=== PATIENT | male | born 1985 | race Caucasian/White ===

== ENCOUNTER 2021-02-04 12:06 | Outpatient (REF) | payer OTHER, SELFPAY | END 2021-02-04 12:07 | disposition home or self-care (01) | LOC: HO.LAB 12:06 | PROVIDERS: Visit Provider Internal Medicine | DX: Z20.822 Contact with and (suspected) exposure to COVID-19 (principal) | CPT/HCPCS: C9803; U0003; U0005 ==

== ENCOUNTER 2022-04-28 14:32 | Outpatient (REF) | payer MEDICAID, SELFPAY | END 2022-04-28 14:33 | disposition home or self-care (01) | LOC: HO.SH 14:32 | PROVIDERS: Visit Provider Registered Nurse | DX: Z01.118 Encounter for examination of ears and hearing with other abnormal findings (principal); H90.6 Mixed conductive and sensorineural hearing loss, bilateral; H69.93 Unspecified Eustachian tube disorder, bilateral | CPT/HCPCS: 92557; 92567; 92588 ==

== ENCOUNTER 2023-03-08 01:50 | Emergency (ER) | payer MEDICAID, SELFPAY ==
--- NOTE | ~2023-03-08 | CT_ITS ---
EXAMINATION: CT ABDOMEN AND PELVIS WITHOUT CONTRAST CLINICAL INFORMATION: Pain. COMPARISON: None available. TECHNIQUE: Multidetector volumetric imaging was performed from the superior aspect of the liver through the pubic symphysis. Sagittal and coronal reformatted images were obtained on the technologist's workstation. This CT examination was performed using dose optimization techniques as appropriate, variously including the following: *Automated exposure control *Adjustment of mA and/or kV according to patient size (this includes techniques or standardized protocols for targeted exams where dose is matched to indication/reason for exam; i.e. extremities or head) *Use of iterative reconstruction technique DLP: 1229 mGy-cm FINDINGS: Motion limits evaluation. LUNG BASES: The visualized lung bases are unremarkable. LIVER, GALLBLADDER, AND BILIARY TREE: The liver is slightly irregular in contour. No focal liver lesions are seen. There is no intrahepatic biliary duct dilatation. The gallbladder is unremarkable with no evidence of radiopaque gallstones, gallbladder wall thickening, or obvious pericholecystic inflammatory changes. PANCREAS: Unremarkable. SPLEEN: Unremarkable. ADRENAL GLANDS: Unremarkable. KIDNEYS AND URETERS: The kidneys are normal in size, shape, and attenuation. No hydronephrosis, hydroureter, or calculi seen. No perinephric stranding. BLADDER: Unremarkable. GASTROINTESTINAL TRACT: There are prominent fluid-filled an apparently mildly thickened mid to distal small bowel loops with apparent mild surrounding infiltration. A small air-containing structure along the cecum is likely a normal appendix. There is small free fluid within the right colon. ABDOMINAL WALL: No significant hernia is appreciated. LYMPH NODES: Normal. VASCULAR: Unremarkable. PELVIC VISCERA: The intrapelvic structures are unremarkable. There is a small amount of free fluid within the pelvis as well as along the liver. OSSEOUS STRUCTURES: Unremarkable. CT/CT abdomen pelvis wo IV con IMPRESSION: Motion limits evaluation. Prominent fluid-filled and thickened mid to distal small bowel loops with apparent mild surrounding infiltration most consistent with an enteritis. The liver is irregular in contour possibly hepatocellular disease/early cirrhosis. Correlation needed. There is small amount of free fluid within the pelvis and along the liver. Fleischner guidelines were followed.
[2023-03-08 02:21] VITALS: BP 160/103; PULSE 74; RESP 16; TEMP 36.6; O2SAT 97
[2023-03-08 02:23] VITALS: BP 160/103; PULSE 74; RESP 6; TEMP 36.6; O2SAT 98; BMI 36.2
[2023-03-08 02:47] LABS: MANUAL DIFF FLAG NO
[2023-03-08 02:48] LABS: Basophils Percent Auto 0.3 % (0-2); Eosinophils Absolute Auto 1.7 X10*3/uL (0.0-0.4); Eosinophils Percent Auto 14.4 % (0-4); Hematocrit 41.8 % (42.0-52.0); Hemoglobin 14.4 g/dl (14.0-18.0); Imm Gran Abs Auto 0.02 X10*3/uL (0.00-0.03); Imm Gran Pct Auto 0.2 % (0.0-0.4); Lymphocytes Absolute Auto 2.4 X10*3/uL (1.2-4.9); Lymphocytes Percent Auto 21.3 % (20-40); Mean Corpuscular HGB Conc 34.4 g/dl (31.0-36.0); Mean Corpuscular Hemoglobin 30.4 pg (27.0-33.0); Mean Corpuscular Volume 88.2 fL (80.0-98.0); Mean Platelet Volume 10.5 fL (9.4-12.4); Monocytes Absolute Auto 0.8 X10*3/uL (0.1-1.2); Monocytes Percent Auto 6.6 % (2-11); Neutrophils Absolute Auto 6.5 x10*3/uL (2.0-8.3); Neutrophils Percent Auto 57.2 % (45-73); Platelet Count 193 X10*3/uL (160-400); Red Blood Count 4.74 X10*6/uL (4.60-5.80); Red Cell Distribution Width 12.9 % (11.0-16.0); White Blood Count 11.4 X10*3/uL (4.8-10.8)
--- NOTE | 2023-03-08 02:52 | ED_ITS ---
HPI - Abdominal Pain General Chief Complaint: Abdominal Pain Stated Complaint: Abd pain/Headache Time Seen by Provider: 03/08/23 02:25 Source: patient and communication instructor Mode of arrival: ambulatory Limitations: no limitations History of Present Illness HPI narrative: 37-year-old male Sinhala-speaking old presented with mid abdominal pain for 3 days after eating Qatari food ( [place]) followed by wide tries and leg pain with pork, the abdominal pain is associated with nausea, vomiting, nonbloody watery diarrhea. Related Data Previous Rx's Medication Instructions Recorded omeprazole 40 mg capsule,delayed 40 mg PO DAILY #14 caps 03/08/23 release Allergies Allergy/AdvReac Type Severity Reaction Status Date / Time No Known Allergies Allergy Unverified 01/11/20 18:51 [No Known Allergies*] Review of Systems Review of Systems All other systems are reviewed and are negative Constitutional: Reports as per HPI and Reports no additional constitutional complaints Eyes: Reports as per HPI and Reports no additional eye complaints Reports system reviewed and no additional complaints, except as documented Cardiovascular: Reports as per HPI and Reports no additional cardiovascular complaints Respiratory: Reports as per HPI and Reports no additional respiratory complaints Gastrointestinal: Reports as per HPI and Reports no additional gastrointestinal complaints Genitourinary: Reports no additional female genitourinary complaints Musculoskeletal: Reports no additional musculoskeletal complaints Skin/Breast: Reports system reviewed and no additional complaints, except as docu Psychiatric: Reports no additional psychiatric complaints Endocrine: Reports no additional endocrine complaints Hematologic/Lymphatic: Reports no additional hematologic/lymphatic complaints Allergic/Immunologic: Reports no additional allergic/immunologic complaints Reports system reviewed and no additional complaints, except as documented and Reports Abnormal speech present [facility] Social History Social History Alcohol intake: former Smoked in Last 30 Days: Yes Use of substances other than those prescribed or required for medical reasons: No Substance Use Type: Marijuana Substance Use Frequency: Daily Advance Directives: No Advance Directives Information Provided: No Physical Exam ED Vital Signs: Vital Signs - 24 hr 03/08/23 02:21 03/08/23 02:23 Temperature 97.8 F 97.8 F Pulse Rate 74 74 Respiratory Rate 16 6 L Blood Pressure 160/103 H 160/103 H Pulse Oximetry 97 98 Oxygen Delivery Method Room Air Room Air BMI result Body Mass Index 36.2 Vital signs have been reviewed and appear to be correct. Blood pressure elevated. Heart rate normal. Respiratory rate normal. Temperature normal. Oxygen saturation normal. Appearance: Alert. Oriented X3. No acute distress. Head: Normal external exam. Normocephalic. Atraumatic. No Khan signs noted. No raccoon eyes noted Eyes: PERRLA. EOMI. Conjunctiva and sclera normal. Eyelids normal. ENT: TM's Normal. Pharynx normal. Uvula midline. Moist mucous membranes. No trismus noted. No drooling noted. No muffled voice noted. Neck: Normal inspection. Neck supple. FROM. No adenopathy. Thyroid Normal. No meningeal signs. No neck mass noted. CVS: Normal heart rate and rhythm. Heart sound normal. No murmurs noted. Pulses normal throughout. Respiratory: No respiratory distress. Painless inspiration. Breath sounds normal. No wheezes/rales/rhonchi noted. Chest nontender. No accessory muscle usage noted or decreased air movement noted. Abdomen: Soft and nontender. Bowel sounds normal in all 4 quadrants. No distention noted. No organomegaly noted. No visible injury noted. Back: No CVA tenderness. Full range of motion noted. Skin: Skin warm and dry. Normal skin color. Normal skin turgor. No rashes/lesions/lacerations noted. Extremities: No lower extremity edema. Extremities exhibit normal range of motion. Extremities nontender. Neuro: Oriented X 3. Cranial nerve exam: II-XII are grossly intact No motor deficit. No sensory deficit. Reflexes normal. Course Reevaluation(s) Reevaluation #1: feels better able to tolerate p.o. intake, CT showing antritis will start the patient on Prilosec able to tolerate p.o. intake with no nausea or vomiting and improvement of abdominal pain. Time: 05:08 Medical Decision Making Differential Diagnosis Differential Diagnoses: The differential diagnosis associated with the presentation includes ( Appendicitis, colitis, diverticulitis, pancreatitis, electrolyte abnormality, severe anemia.) Admission/Observation Consideration of admission/observation: Escalation of care including admission/observation considered Lab Data MDM Lab Attestation statement: I reviewed the patient's lab results. 03/08/23 02:42 03/08/23 02:42 Labs: Lab Results 03/08/23 Range/Units 02:42 WBC 11.4 H (4.8-10.8) X10*3/uL RBC 4.74 (4.60-5.80) X10*6/uL Hgb 14.4 (14.0-18.0) g/dl Hct 41.8 L (42.0-52.0) % MCV 88.2 (80.0-98.0) fL MCH 30.4 (27.0-33.0) pg MCHC 34.4 (31.0-36.0) g/dl RDW 12.9 (11.0-16.0) % Plt Count 193 (160-400) X10*3/uL MPV 10.5 (9.4-12.4) fL Immature Gran % (Auto) 0.2 (0.0-0.4) % Neut % (Auto) 57.2 (45-73) % Lymph % (Auto) 21.3 (20-40) % Phillips % (Auto) 6.6 (2-11) % Eos % (Auto) 14.4 H (0-4) % Baso % (Auto) 0.3 (0-2) % Lymph # (Auto) 2.4 (1.2-4.9) X10*3/uL Phillips # (Auto) 0.8 (0.1-1.2) X10*3/uL Eos # (Auto) 1.7 H (0.0-0.4) X10*3/uL Baso # (Auto) 0.0 (0.0-0.2) X10*3/uL Abs Immat Gran (auto) 0.02 (0.00-0.03) X10*3/uL Absolute Neuts (auto) 6.5 (2.0-8.3) x10*3/uL Absolute Nucleated RBC 0.000 (0.0-0.012) X10*3/uL Nucleated RBC % (auto) 0.0 (0.0-0.2) /100WBC Sodium 143 (135-145) mmol/L Potassium 3.8 (3.3-5.1) mmol/L Chloride 104 (96-108) mmol/L Carbon Dioxide 31 H (22-29) mmol/L Anion Gap 12 (12-20) BUN 13 (9-16) mg/dL Creatinine 0.94 (0.5-1.4) mg/dL Estim Creat Clear Calc 102.4 Estimated GFR > 60 Random Glucose 100 (60-115) mg/dL Calcium 9.1 (8.4-10.2) mg/dL Total Bilirubin 0.4 (0.0-1.0) mg/dL AST 17 (5-37) U/L ALT 11 (0-40) U/L Alkaline Phosphatase 53 (39-117) U/L Total Protein 7.0 (6.5-8.0) g/dL Albumin 4.1 (3.5-5.0) g/dL Lipase 13 (8-78) U/L COVID-19 (JENA) Negative (Negative) COVID-19 Clin Com See Note Influenza Type A (CATIA) Negative (Negative) Influenza Type B (CATIA) Negative (Negative) Influenza A & B Note See Note Independent Interpretation I performed an independent interpretation of an: CT Scan ( Abdomen and pelvis: Enteritis) Radiology Impression Discussion of test interpretation with radiology: I discussed test interpretation with the radiologist Medications Administered Discontinued Medications Generic Name Dose Route Start Last Admin Trade Name Freq PRN Reason Stop Dose Admin Al Hydroxide/Mg Hydroxide 30 ml 03/08/23 02:50 03/08/23 03:15 Magnesium Hydrox/Alum Hydrox 30 Ml Oral.Susp PO 03/08/23 02:51 30 ml ONCE ONE Administration Famotidine 20 mg 03/08/23 02:50 03/08/23 03:15 Famotidine/Pf 20 Mg/2 Ml Vial IVPUSH 03/08/23 02:51 20 mg ONCE ONE Administration Ondansetron HCl 4 mg 03/08/23 02:50 03/08/23 03:15 Ondansetron Hcl 4 Mg/2 Ml Vial IVPUSH 03/08/23 02:51 4 mg ONCE ONE Administration Discharge Plan Discharge Clinical Impression: Enteritis Patient Disposition: Home, Self-Care Instructions: Enteritis (ED) Additional Instructions: clear food today advance slowly as tolerated, follow-up with your primary doctor. Prescriptions: New omeprazole 40 mg capsule,delayed release(DR/EC) 40 mg PO DAILY Qty: 14 0RF Referrals: Amaya Hua MD [Physician] -
[2023-03-08 03:03] LABS: Alanine Aminotransferase 11 U/L (0-40); Albumin Level 4.1 g/dL (3.5-5.0); Alkaline Phosphatase 53 U/L (39-117); Anion Gap 12 (12-20); Aspartate Amino Transferase 17 U/L (5-37); Bilirubin Total 0.4 mg/dL (0.0-1.0); Blood Urea Nitrogen 13 mg/dL (9-16); Calcium 9.1 mg/dL (8.4-10.2); Carbon Dioxide 31 mmol/L (22-29); Chloride 104 mmol/L (96-108); Creatinine Clr Calc Pharmacy 102.4; Estimated Glomerular Filt Rate > 60; Glucose Random 100 mg/dL (60-115); Lipase 13 U/L (8-78); Potassium 3.8 mmol/L (3.3-5.1); Sodium 143 mmol/L (135-145)
[2023-03-08 03:06] LABS: COVID-19 Test Negative (Negative); IDNOW Serial# 08D9AD1C
[2023-03-08 03:13] LABS: IDNOW Serial# 6674DD1D; Influenza A Negative (Negative); Influenza B2 Negative (Negative)
[2023-03-08] MEDS: Famotidine/PF 20 MG/2 ML VIAL IVPUSH (03:15)
[2023-03-08] MEDS: ondansetron HCL 4 MG/2 ML VIAL IVPUSH (03:15)
[2023-03-08] MEDS: Magnesium Hydrox/Alum Hydrox 30 ML ORAL.SUSP PO (03:15)
[2023-03-08 05:15] VITALS: BP 125/69; PULSE 70; RESP 16; TEMP 36.6; O2SAT 99
== END 2023-03-08 05:16 | disposition home or self-care (01) ==
PROVIDERS: Emergency Provider Emergency Medicine
DX: K52.9 Noninfective gastroenteritis and colitis, unspecified (principal); R10.9 Unspecified abdominal pain; Z11.52 Encounter for screening for COVID-19
CPT/HCPCS: 36415; 74176; 80053; 83690; 85025; 87502; 87635; 96374; 96375; 99284; J2405

== ENCOUNTER 2024-08-25 15:44 | Outpatient (REF) | payer MEDICAID, SELFPAY ==
[2024-08-25 18:00] LABS: Estimated Average Glucose 97 mg/dL; Hemoglobin A1C 109.5728 umol/L; Total Hemoglobin (HGBA1C) 3558.4138 umol/L
[2024-08-25 18:09] LABS: Alanine Aminotransferase 19 U/L (0-40); Albumin Level 4.1 g/dL (3.5-5.0); Alkaline Phosphatase 54 U/L (39-117); Anion Gap 12 (12-20); Aspartate Amino Transferase 29 U/L (5-37); Bilirubin Total 0.2 mg/dL (0.0-1.0); Blood Urea Nitrogen 21 mg/dL (9-16); Carbon Dioxide 27 mmol/L (22-29); Chloride 105 mmol/L (96-108); Cholesterol 162 mg/dL (<200); Estimated Glomerular Filt Rate > 60; Glucose Random 85 mg/dL (60-115); HDL Cholesterol 39 mg/dL (>40); LDL Cholesterol Calculated 103 mg/dL (<100); Potassium 4.1 mmol/L (3.3-5.1); Sodium 140 mmol/L (135-145); Total Protein 7.3 g/dL (6.5-8.0); Triglycerides 102 mg/dL (<150)
[2024-08-26 16:07] LABS: CT PCR NOT DETECTED (Not Detect.); NG PCR NOT DETECTED (Not Detect.)
[2024-08-27 16:13] LABS: RPR Rapid Plasma Reagin NON-REACTIVE (NON-REACTIVE)
[2024-08-28 05:11] LABS: HIV AB/AG Nonreactive (Nonreactive); HIV Num 1 0.06 S/CO (0.00-0.99); ~HepC Num1 0.25 S/CO (0.00-0.79); ~Hepatitis C Antibody Nonreactive (Nonreactive)
== END 2024-08-25 15:45 | disposition home or self-care (01) ==
LOC: HO.HHCL 15:44
PROVIDERS: Visit Provider Nurse Practitioner Family
DX: Z00.00 Encounter for general adult medical examination without abnormal findings (principal)
CPT/HCPCS: 36415; 80053; 80061; 83036; 86592; 86803; 87389; 87491; 87591

== ENCOUNTER 2024-09-05 15:11 | Outpatient (AMB) | payer MEDICAID, SELFPAY ==
--- NOTE | 2024-09-05 15:17 | MHC.OFFVIS ---
Vital Signs 09/05/24 15:18 Height 5 ft 2 in Weight 189 lb 9.561 oz BMI 34.7 BP 132/72 Blood Pressure Location Lt brachial Position Sitting Pulse 80 Intake Visit Reasons: constipation, pt req colo screening Intake Note: Duy presents in the office as a new patient or constipation and colonoscopy screening. CC: He states that he is dealing with an infection and is on antibiotics. He is having issues with constipation and pains in the stomach. He gets blood in the stool and gets worried about it. He states that his uncle and dad had it as well. Electric Motor Tester Assembler Required: Yes Electric Motor Tester Assembler Services: Electric Motor Tester Assembler Present Electric Motor Tester Assembler Name: Leah Information Interpreted: non-clinical & clinical Allergies No Known Allergies [No Known Allergies*] Allergy (Unverified 09/05/24 15:18) Medication List - Last Reconciled 09/05/24 by Renee Hadley CNP albuterol sulfate 90 mcg/actuation 2 puffs inhalation Q6H PRN albuterol sulfate 5 mg inhalation Q6H budesonide-formoterol 80-4.5 mcg/actuation (Symbicort) 2 puffs inhalation BID nicotine 1 patch topical QAM omeprazole 40 mg PO DAILY HPI HPI constipation, pt req colo screening: Details: Patient is a 38-year-old male with PMH of obesity, asthma and nicotine dependence. Patient was referred by PCP for further evaluation of blood in stools and at his request for cancer screening. Reports lack of care for 15 years. Establish care approx 2 years ago upon relocation from [place]. The patient reports a history of constipation and intermittent blood in stools when using the bathroom. Onset of symptoms is undetermined but has been present for at least a year. Symptoms occur primarily in the rectal area and vary in frequency; bowel movements are 3-4 times per week on average. Characteristics of bowel movements include straining to pass stool, presence of bright red blood on toilet paper and in the stool, and occasional need for manual stimulation to initiate bowel movement. Straining and physical activity seem to aggravate the bleeding. Symptoms temporarily relieved by avoiding fatty foods and consuming protein and vitamins. Associated symptoms include involuntary release of stools when unable to reach the bathroom timely. The patient denies abdominal pain but notes occasional rectal bulge consistent with hemorrhoids. The patient reports nausea triggered by smoking and dietary sugars, and GERD symptoms such as regurgitation and a strong odor during burps. Report triggers of bbq and pizza sauce. Shares relief with OTC pill, he thinks omeprazole. He also mentions occasional trouble swallowing, particularly when not drinking liquids with food. Reports intentional weight loss from 248 lbs to 189 lbs over nine months. Following a high protein diet and regular physical exercise. Shares he is scheduled to see a Diamond Cutter for further evaluation of intermittent chest pain Social History - Diet: Protein-heavy, low in fiber. Consumes boiled eggs, protein shakes, tea, occasional greasy/fatty foods. Limited intake of fruits and vegetables. - Alcohol/Tobacco/Drug Use: Occasional alcohol use (holidays), daily marijuana use, reduced cigarette use currently at half of prior consumption (approximately half pack daily). - family hx as below -denies personal hx of CA -no history of procedures/surgery requiring sedation/anesthesia. [facility] Medical History (Updated 09/05/24 @ 17:08 by Renee Hadley CNP) Blood in stool Asthma Acid reflux Nicotine dependence Constipation Family History (Updated 09/05/24 @ 15:19 by MARTIN Galvez) Maternal Grandfather Cancer Social History Household Members: Family Alcohol intake: former Patient Tobacco Use Status: Current everyday Tobacco user Tobacco use type: Cigarette Substance Use Type: Marijuana Review of Systems Const Reports as per HPI ENT Reports as per HPI Card Reports as per HPI Resp Reports as per HPI GI Reports as per HPI Reports as per HPI Physical Exam Vital Signs: Last Vital Signs Pulse 80 09/05/24 15:18 BP 132/72 09/05/24 15:18 BMI result Body Mass Index 34.7 Const General: healthy appearing, no acute distress and well developed Nutritional Appearance: well nourished Orientation/consciousness: patient oriented x3 HEENT Head: Yes normal to inspection, Yes normocephalic and Yes atraumatic Face and sinus: Yes normal facial exam Eyes General: appearance normal, both eyes and all related structures Neck Neck: Yes normal visual inspection Resp Effort & Inspection: normal respiratory effort, able to speak in complete sentences, no tracheal deviation and symmetric chest movement Auscultation: clear to auscultation bilaterally Cardio Jugular venous distension: no JVD Rate: regular rate Rhythm: regular rhythm Heart sounds: S1 normal heart sound present, S2 normal heart sound present, no gallops and no murmurs GI Inspection: Yes normal to inspection, No distended and Yes obesity Palpation (GI): Soft to palpation, not firm, nontender and No hepatosplenomegaly present Auscultation: normal bowel sounds Rectal Exam - Male: Yes visual inspection normal (Skin tags observed in the perianal region), No External hemorrhoid(s) present, No hemorrhoids, No mass and No tenderness Neuro General: patient oriented x3 Gait exam (Neuro): Normal gait present Psych Appearance: grossly normal Mental Status: mental status grossly normal Speech and movement: Normal speech and movement present Affect: normal affect Attitude: cooperative Thought process: Normal thought process present Thought content: Normal thought content present Insight: Good insight present (Psych) Judgement: Good judgement present (Psych) Results Reviewed Results Reviewed: Reviewed labs from PCP referral collected 08/25/2024: Normal CMP and A1c of 5.0. Assessment & Plan Assessment & Plan (1) Constipation: Code(s): K59.00 - Constipation, unspecified Category: Medical Qualifiers: Constipation type: unspecified constipation type Qualified Code(s): K59.00 - Constipation, unspecified Plan: Exam unremarkable for external hemorrhoids. Also did not visualized fissure. We will initiate workup to r/o secondary causes. Diagnostic Tests: Blood work (including thyroid function) Medications: Prescribe polyethylene glycol daily for regular bowel movements Reinforced lifestyle modifications to promote regularity: -higher fiber diet, examples provided -adequate hydration with water -150 minutes of moderate intensity exercise per week (2) Nicotine dependence: Code(s): F17.200 - Nicotine dependence, unspecified, uncomplicated Category: Medical Qualifiers: Nicotine product type: cigarettes Substance use status: uncomplicated Qualified Code(s): F17.210 - Nicotine dependence, cigarettes, uncomplicated Plan: current every day smoker. Continue working on cessation (3) Acid reflux: Code(s): K21.9 - Gastro-esophageal reflux disease without esophagitis Category: Medical Qualifiers: Esophagitis presence: esophagitis presence not specified Qualified Code(s): K21.9 - Gastro-esophageal reflux disease without esophagitis Plan: With reports of intermittent dysphagia Diagnostic Tests: Swallow study recommended, H pylori stool testing ordered as well (called patient after our visit to inform and provide instructions via assistant paralegal Blayne Champion ). Medications: Prescribe omeprazole 20 mg once daily Patient Education: Encouraged to take omeprazole as prescribed, taken at least 30-60 minutes before a meal. Education on GERD prevention : -Advised against heavy meals; encouraged small, frequent meals instead of large ones. - Instructed to remain upright for 2?3 hours after eating. - Advised to avoid late-night meals, spicy foods, caffeine, alcohol, known dietary triggers, and tight-fitting clothing. - Emphasis placed on gradual implementation of lifestyle changes to improve adherence and symptom control. (4) Asthma: Code(s): J45.909 - Unspecified asthma, uncomplicated Category: Medical Qualifiers: Asthma complication type: unspecified Asthma persistence: unspecified Asthma severity: unspecified severity Qualified Code(s): J45.909 - Unspecified asthma, uncomplicated Plan: Discussed inhalers, intend use and frequency as reported on medication list. Instructed to review once home and revisit conversation with PCP to ensure proper asthma management. (5) Blood in stool: Code(s): K92.1 - Melena Category: Medical Plan: Symptoms intermittent. Avoid constipation as above. Plan for endoscopy as below. Plan After further he would benefit from endoscopic evaluation. We will discuss plan for EGD and colonoscopy to further evaluate dysphasia and r/o rectal lesion VS proctitis. Follow-up in 6 weeks or sooner as needed. Time: I spent a total of 75 minutes on the date of encounter which includes: Preparing to see the patient (reviewed previous documentation, test results and medical history) Performing a medically appropriate exam and/or evaluation Ordering medications, tests, and procedures Documenting clinical information in the health record Orders: Orders IRON PROFILE 09/05/24 K59.00 - Constipation, unspecified TSH reflex Free T4 09/05/24 K59.00 - Constipation, unspecified Basic Metabolic Panel 09/05/24 K59.00 - Constipation, unspecified H pylori Ag Stool 09/05/24 K21.9 - Gastro-esophageal reflux disease without esophagitis, K59.00 - Constipation, unspecified Complete Blood Count no Diff 09/05/24 K59.00 - Constipation, unspecified [place] barium swallow 09/05/24 K21.9 - Gastro-esophageal reflux disease without esophagitis, R13.10 - Dysphagia, unspecified Medications: New polyethylene glycol 3350 (Miralax) Take 17G (one cap full) daily with 8oz of water 17 grams PO DAILY 238 grams 2RF constipation 30 days omeprazole take one tablet daily. Best taken 30 min before first meal 20 mg PO DAILY 90 caps 1RF Discontinued omeprazole Discontinued Reason: Duplicate 40 mg PO DAILY 14 caps 0RF Coding Level of Care Code New Pt New Pt Level 5 (75940) Patient Type New Diagnoses Constipation, unspecified constipation type K59.00 Constipation type: unspecified constipation type Cigarette nicotine dependence without complication F17.210 Nicotine product type: cigarettes Substance use status: uncomplicated Gastroesophageal reflux disease, unspecified whether esophagitis present K21.9 Esophagitis presence: esophagitis presence not specified Asthma, unspecified asthma severity, unspecified whether complicated, unspecified whether persistent J45.909 Asthma complication type: unspecified Asthma persistence: unspecified Asthma severity: unspecified severity Blood in stool K92.1
[2024-09-05 15:18] VITALS: BP 132/72; PULSE 80; BMI 34.7
== END 2024-09-05 16:27 | disposition home or self-care (01) ==
LOC: HO.HGI 15:12
PROVIDERS: PCP Nurse Practitioner Family; Visit Provider Nurse Practitioner Family
DX: K59.00 Constipation, unspecified (principal); F17.210 Nicotine dependence, cigarettes, uncomplicated; K21.9 Gastro-esophageal reflux disease without esophagitis; J45.909 Unspecified asthma, uncomplicated; K92.1 Melena
CPT/HCPCS: 99205

== ENCOUNTER → 2024-09-05 15:11 | Outpatient (BNVA) | payer MEDICAID, SELFPAY | PROVIDERS: PCP Nurse Practitioner Family; Visit Provider Nurse Practitioner Family | DX: K59.00 Constipation, unspecified (principal); K21.9 Gastro-esophageal reflux disease without esophagitis; K92.1 Melena; J45.909 Unspecified asthma, uncomplicated; F17.210 Nicotine dependence, cigarettes, uncomplicated | CPT/HCPCS: 99212 ==